=== PATIENT | female | born 1945 | race Caucasian/White ===

== ENCOUNTER 2016-07-29 08:43 | Emergency (ER) | payer MEDICARE, BC ==
[~2016-07-29 08:43] MED LIST: 'PARAFON FORTE500 M1 PO; ASPIRIN CHILDRE81 MG PO; CLARITIN10 MG PO; FLEXERIL10 MG PO; GLUCOPHAGE1000 MG PO; GLYBURIDE5 MG PO; HYDROCODONE BIT1 T11 PO; HYZAAR 50/12.5M1 TAB PO; NAPROSYN500 MG PO; PRILOSEC40 M1 PO; Synthroid,Lev100 MCG PO; TOPROL XL50 M1 PO; TRICOR48 MG PO; VICTOZA 3-PAK6 MG/ML IM; ZETIA10 MG PO
[2016-07-29 09:16] LABS: BASO # 0.1 10*3/uL (0.0-0.1); BASO % 0.6 % (0.0-1.0); EOS # 0.1 10*3/uL (0.0-0.4); EOS % 0.7 % (1.0-4.0); HEMATOCRIT 38.1 % (37.0-47.0); HEMOGLOBIN 10.3 g/dl (12.0-16.0); IG # 0.1 10*3/uL (0.0-0.1); LYMPH # 2.2 10*3/uL (1.3-4.4); LYMPH % 19.4 % (27.0-41.0); MEAN CELL VOLUME 78.7 fl (81.0-99.0); MEAN CORPUSCULAR HGB 21.3 pg (27.0-31.0); MEAN PLATELET VOLUME 9.6 fl (9.6-12.3); MONO # 0.8 10*3/uL (0.1-1.0); MONO % 7.1 % (3.0-9.0); NEUT % 71.7 % (47.0-73.0); PLATELET COUNT AUTOMATED 463 10*3/uL (130-400); RED BLOOD COUNT 4.84 10*6/uL (4.10-5.10); RED CELL DISTRI WIDTH 17.5 % (0-14.5); WHITE BLOOD COUNT 11.2 10*3/uL (4.8-10.8)
[2016-07-29 09:34] LABS: BUN 15 mg/dl (7-24); CARBON DIOXIDE 35 mmol/L (21-32); CHLORIDE 96 mmol/L (98-107); EST GLOM FILT AFRICAN AMERICAN > 60 ml/min; GLUCOSE 114 mg/dL (65-99); MAGNESIUM 1.6 mg/dL (1.5-2.1); POTASSIUM 3.8 mmol/L (3.5-5.1); SODIUM 140 mmol/L (136-145)
[2016-07-29 09:36] LABS: TROPONIN I < 0.015 ng/ml (<0.045)
[2016-07-29 09:57] VITALS: BP 145/65
== END 2016-07-29 09:59 | disposition home or self-care (01) ==
LOC: ED 08:43
PROVIDERS: Emergency Medicine
DX: E16.2 Hypoglycemia, unspecified (principal); Z79.82 Long term (current) use of aspirin; Z79.899 Other long term (current) drug therapy; Z88.1 Allergy status to other antibiotic agents; Z88.8 Allergy status to other drugs, medicaments and biological substances

== ENCOUNTER → 2016-08-13 | Outpatient (CLI) | payer MEDICARE, BC ==
[2016-08-13 16:47] LABS: HEMATOCRIT 34.7 % (37.0-47.0); HEMOGLOBIN 9.5 g/dl (12.0-16.0); MEAN CELL VOLUME 77.5 fl (81.0-99.0); MEAN CORPUSCULAR HGB 21.2 pg (27.0-31.0); MEAN CORPUSCULAR HGB CONC 27.4 g/dl (33.0-37.0); MEAN PLATELET VOLUME 9.5 fl (9.6-12.3); RED BLOOD COUNT 4.48 10*6/uL (4.10-5.10); RED CELL DISTRI WIDTH 17.7 % (0-14.5)
[2016-08-13 17:40] LABS: FERRITIN 5.6 ng/mL (10.0-291.0)
== END | disposition home or self-care (01) ==
LOC: LAB 16:32
PROVIDERS: Internal Medicine
DX: D64.89 Other specified anemias (principal)

== ENCOUNTER → 2016-08-14 | Outpatient (CLI) | payer MEDICARE, BC | END | disposition home or self-care (01) | LOC: LAB 14:42 | DX: D64.89 Other specified anemias (principal) ==

== ENCOUNTER → 2016-08-24 | Day surgery (SDC) | payer MEDICARE, BC ==
[~2016-08-24] VITALS: Ht 167.6 cm; Wt 99.8 kg
--- NOTE | ~2016-08-24 | PROC NOTE ---
[place], [place] PROCEDURE NOTE [id number] UNIT #: [id number] ROOM: DOCTOR: KAY KAMINSKI MD BIRTHDATE: [birth year] DOS: 08/24/2016 PREOPERATIVE DIAGNOSIS: Iron deficiency anemia. POSTOPERATIVE DIAGNOSES: Iron deficiency anemia, diverticulosis. PROCEDURE: Esophagogastroduodenoscopy with colonoscopy. ENDOSCOPIST: Kay Kaminski MD. AUTOMOBILE RENTAL REPRESENTATIVE: PGY1. ANESTHESIA: MAC. INDICATIONS: This is a 71-year-old lady with a history of iron deficiency anemia, who is here for an EGD and a colonoscopy as part of her workup. The procedure and its complications were explained to the patient in detail preoperatively. Complications that were discussed included, but were not limited to, bleeding, colon/gastric perforation, and missed lesions. She agreed to proceed. DESCRIPTION OF PROCEDURE: After identifying the patient, the patient was brought to the operating suite and laid in the left lateral position. After IV sedation was administered, a bite block was placed, and a timeout procedure was called. An EGD was performed by inserting an adult gastroscope into the mouth and advancing sequentially into the pharynx, esophagus, stomach, and the first 2 parts of the duodenum. There were no obvious lesions that could be seen that could have explained the iron deficiency anemia. There were no ulcerations nor gastritis. These findings were confirmed upon retroflexion of the scope in the stomach. Upon withdrawal of the scope, the esophagus was found to be within normal limits. At this point, attention was turned towards colonoscopy. A digital rectal exam was performed, which was within normal limits. An adult colonoscope was now introduced into the anal canal and advanced sequentially into the rectum, sigmoid colon, descending colon, transverse colon, and ascending colon up to the cecum. The prep was found to be optimal. Upon reaching the cecum, the scope was withdrawn. Total withdrawal time was approximately 6 minutes and 45 seconds, again no lesions were identified. No polyps and no obvious signs of bleeding. I did see minimal diverticulosis in the sigmoid colon upon withdrawal. Upon retroflexion of the scope, in the rectum, there was found to be internal hemorrhoids, which were nonbleeding. The scope was withdrawn, and the patient was taken to the recovery room in a stable fashion. Dr. Kay Kaminski, the attending surgeon, was present throughout the operating case. Based on these findings, the patient was recommended to have another colonoscopy in 10 years or before if she has any symptoms. These findings were discussed with the patient's in the postoperative area. I will talk to the patient herself in the office in 2 weeks when she comes to see me as an outpatient. [place], [place] PROCEDURE NOTE NAME: BRENT ORELLANA UNIT #: [id number] ROOM: DOCTOR: KAY KAMINSKI MD BIRTHDATE: [birth year] Kay Kaminski MD CM:PROCNOTE:PROCEDURE NOTE [id number] KAY KAMINSKI MD
[2016-08-24 08:58] VITALS: BP 127/86
[2016-08-24 10:48] VITALS: BP 107/57
[2016-08-24 11:02] VITALS: BP 108/57
[2016-08-24 11:14] VITALS: BP 117/50
== END | disposition home or self-care (01) ==
LOC: SDC 08-23 10:15
DX: D50.9 Iron deficiency anemia, unspecified (principal); K57.30 Diverticulosis of large intestine without perforation or abscess without bleeding; K64.8 Other hemorrhoids; E11.9 Type 2 diabetes mellitus without complications; I10 Essential (primary) hypertension; E07.9 Disorder of thyroid, unspecified; I25.2 Old myocardial infarction; Z82.49 Family history of ischemic heart disease and other diseases of the circulatory system; Z98.890 Other specified postprocedural states; Z87.891 Personal history of nicotine dependence

== ENCOUNTER 2018-04-13 13:00 | Emergency (ER) | payer MEDICARE ==
[~2018-04-13] VITALS: Ht 167.6 cm; Wt 90.7 kg
[2018-04-13 13:00] VITALS: BP 158/75
[2018-04-13] MEDS ORDERED: PREDNISONE50 MG PO (13:40)
== END 2018-04-13 14:05 | disposition home or self-care (01) ==
LOC: ED 13:00
DX: M25.532 Pain in left wrist (principal); M79.89 Other specified soft tissue disorders; R53.1 Weakness; E11.9 Type 2 diabetes mellitus without complications; E07.9 Disorder of thyroid, unspecified; I10 Essential (primary) hypertension; I25.2 Old myocardial infarction; Z88.1 Allergy status to other antibiotic agents; Z88.8 Allergy status to other drugs, medicaments and biological substances; Z79.82 Long term (current) use of aspirin; Z79.899 Other long term (current) drug therapy; Z79.84 Long term (current) use of oral hypoglycemic drugs

== ENCOUNTER → 2019-03-24 | Outpatient (CLI) | payer MEDICARE ==
[~2019-03-24] MED LIST changes: +FENOFIBRATE145 M1 PO; +FEROSUL325 MG PO; +GLYCOTROL CAPS1 EACH PO; +LOSARTAN POTASS25 M1 PO; +MAGNESIUM250 M2 PO; +PRAVACHOL40 MG PO; +PREDNISONE50 MG PO; +TRULICITY1.5 MG/0.5 SC; +VITAMIN D31000 UNI1 PO
--- NOTE | ~2019-03-24 | ST ---
[place], [place] EXERCISE STRESS TEST REPORT NAME: BRENT ORELLANA UNIT #: [id number] ROOM: DOCTOR: AVI INTERIANO MD BIRTHDATE: [birth year] DOS: 03/24/2019 LEXISCAN PORTION OF THE LEXISCAN CARDIOLITE Baseline cardiogram, sinus rhythm with PVCs with poor R-wave progression in the anterior leads, 0.4 mg of Lexiscan, duration of 10 seconds. No new EKG changes. No chest discomfort. Blood pressure and heart rate response was normal. Mild ST depressions are present in the inferior and lateral leads. Nuclear images will be reported separately. AVI INTERIANO MD CM:STRESS:EXERCISE STRESS TEST REPORT [id number] AVI INTERIANO MD
--- NOTE | 2019-03-24 07:45 | NUR ---
INFORMED CONSENT SIGNED FOR LEXISCAN STRESS TEST WITH DR. INTERIANO. RESTING EKG NSR WITH PVC NOTED. HR 73, BP 144/78. PULSE OX 94% AND BREATH SOUND CLEAR BILATERALLY. COMPLETED ONE MINUTE OF LEXISCAN PROTOCOL RECEIVING LEXISCAN 0.4MG OVER 10 SECONDS. RARE PVC'S AND PAC'S NOTED WITH NO ST CHANGES. PT C/O SOB. LAST RECOVERY HR 81, BP 140/70. WAITING NUCLEAR SCANNNING IN STABLE CONDITION.
== END | disposition home or self-care (01) ==
LOC: CARD 00:14
DX: R94.31 Abnormal electrocardiogram [ECG] [EKG] (principal)

== ENCOUNTER 2019-08-27 16:10 | Inpatient (IN) | payer MEDICARE ==
[2019-08-27] VITALS (9 sets, daily range): BP systolic 113–172; BP diastolic 70–90
[~2019-08-27] VITALS: Ht 167.6 cm; Wt 88.7 kg
[2019-08-27 16:52] LABS: BASO # 0.1 10*3/uL (0.0-0.1); BASO % 0.4 % (0.0-1.0); EOS % 0.1 % (1.0-4.0); HEMATOCRIT 40.7 % (37.0-47.0); LYMPH # 1.1 10*3/uL (1.3-4.4); LYMPH % 7.7 % (27.0-41.0); MEAN CELL VOLUME 95.5 fl (81.0-99.0); MEAN CORPUSCULAR HGB 28.9 pg (27.0-31.0); MEAN CORPUSCULAR HGB CONC 30.2 g/dl (33.0-37.0); MEAN PLATELET VOLUME 10.1 fl (9.6-12.3); MONO # 0.3 10*3/uL (0.1-1.0); MONO % 1.8 % (3.0-9.0); NEUT # 13.1 10*3/uL (2.3-7.9); NEUT % 89.3 % (47.0-73.0); PLATELET COUNT AUTOMATED 419 10*3/uL (130-400); RED BLOOD COUNT 4.26 10*6/uL (4.10-5.10); RED CELL DISTRI WIDTH 14.6 % (0-14.5); WHITE BLOOD COUNT 14.7 10*3/uL (4.8-10.8)
[2019-08-27 17:13] LABS: CHLORIDE 100 mmol/L (98-107); POTASSIUM 4.8 mmol/L (3.5-5.1); SODIUM 137 mmol/L (136-145)
[2019-08-27 17:19] LABS: ACT PARTIAL THROMBO TIME 28.7 SECONDS (20.0-32.1); INTERNATIONAL NORM RATIO 1.2 (2.0-3.5)
[2019-08-27 17:41] LABS: ALBUMIN 3.3 gm/dl (3.1-4.5); ALKALINE PHOSPHATASE 82 U/L (45-117); CREATININE 1.18 mg/dL (0.55-1.02); SGOT/AST 52 IU/L (3-35); SGPT/ALT 54 U/L (12-78); TOTAL PROTEIN 7.5 gm/dL (6.4-8.2)
[2019-08-27 17:44] LABS: LIPASE 104 U/L (73-393)
[2019-08-27 18:06] LABS: BUN 27 mg/dl (7-24)
[2019-08-27 18:08] LABS: TROPONIN I < 0.015 ng/ml (<0.045)
--- NOTE | 2019-08-27 20:15 | NUR ---
A 74, admitted to [facility]U, under the services of ANTON Carpenter DO with a diagnosis of Acute heart failure and afib with RVR. Chief complaint is increased shortness of breath x 4-5 days. Patient arrived via stretcher from ER. Monitor applied. Initial assessment completed. Vital signs taken and recorded. ANTON CARPENTER DO notified of admission to the unit. Orders received. See assessment for past medical history, medications and allergies. Patient and/or family oriented to unit. [facility] visitation policy reviewed. Clothing/patient valuable form completed. CARISSA NÚÑEZ
--- NOTE | 2019-08-27 20:30 | NUR ---
SECOND IV STARTED RT WRIST FOR IV ANTIBIOTICS.
[2019-08-27] MEDS ORDERED: VITAMIN B-12500 MC2 PO (20:31)
[2019-08-27] MEDS ORDERED: PROTONIX40 MG PO (20:33)
[2019-08-27] MEDS ORDERED: COLACE100 MG PO (20:34)
[2019-08-27] MEDS ORDERED: MIRALAX17 GM PO (20:35)
[2019-08-27] MEDS ORDERED: AVAPRO150 M1 PO (20:39)
[2019-08-27] MEDS ORDERED: LASIX20 MG PO (20:40)
[2019-08-27] MEDS ORDERED: AMIODARONE HCL100 M1 PO (20:42)
[2019-08-27] MEDS ORDERED: ELIQUIS5 M1 PO (20:43)
--- NOTE | 2019-08-27 21:56 | NUR ---
DR PRINGLE NOTIFIED OF CONSULT. ORDERS RECEIVED.
--- NOTE | 2019-08-27 22:20 | NUR ---
DR GRAMAJO WAS UPDATED ON LACTIC ACIDS TRENDING DOWN, DR PRINGLE ORDERS, CARDIZEM GTT DOWN TO 5MG/HR. CT CHEST RESULTS ALSO RELAYED TO HIM.
[2019-08-27 22:26] LABS: ABG BASE EXCESS 0.8 mmol/L (-2.0-2.0); ARTERIAL BLOOD GAS PH 7.353 (7.35-7.45)
--- NOTE | 2019-08-27 23:50 | NUR ---
MEDICATED WITH TYLENOL PER PRN ORDER FOR C/O GEN PAIN.
[2019-08-28] VITALS (9 sets, daily range): BP systolic 118–159; BP diastolic 52–98
--- NOTE | 2019-08-28 03:50 | NUR ---
MEDICATED WITH TYLENOL PER PRN ORDER FOR C/O GEN PAIN.
[2019-08-28 06:08] LABS: BASO % 0.3 % (0.0-1.0); HEMATOCRIT 36.2 % (37.0-47.0); LYMPH % 9.4 % (27.0-41.0); MEAN CORPUSCULAR HGB 29.1 pg (27.0-31.0); MEAN CORPUSCULAR HGB CONC 30.9 g/dl (33.0-37.0); MEAN PLATELET VOLUME 10.1 fl (9.6-12.3); MONO # 0.2 10*3/uL (0.1-1.0); MONO % 1.9 % (3.0-9.0); NEUT % 87.6 % (47.0-73.0); PLATELET COUNT AUTOMATED 332 10*3/uL (130-400); RED BLOOD COUNT 3.85 10*6/uL (4.10-5.10); RED CELL DISTRI WIDTH 14.8 % (0-14.5); WHITE BLOOD COUNT 10.3 10*3/uL (4.8-10.8)
--- NOTE | 2019-08-28 06:35 | NUR ---
DR MOCK NOTIFIED OF CONSULT. AIDEN NEWMAN FOR AN ECHO THIS MORNING.
[2019-08-28 06:42] LABS: ALBUMIN 3.2 gm/dl (3.1-4.5); BUN 30 mg/dl (7-24); CHLORIDE 100 mmol/L (98-107); CHOLESTEROL 130 mg/dL (<200); CREATININE 0.89 mg/dL (0.55-1.02); POTASSIUM 4.3 mmol/L (3.5-5.1); SGOT/AST 29 IU/L (3-35); SGPT/ALT 50 U/L (12-78); SODIUM 137 mmol/L (136-145); TRIGLYCERIDES 154 mg/dl (<150); VLDL CHOLESTEROL 31 mg/dL (6-40)
[2019-08-28 06:45] LABS: ACT PARTIAL THROMBO TIME 26.8 SECONDS (20.0-32.1); INTERNATIONAL NORM RATIO 1.3 (2.0-3.5)
[2019-08-28 06:48] LABS: ALKALINE PHOSPHATASE 70 U/L (45-117); FREE T4 1.92 ng/dl (0.76-1.46); HDL CHOLESTEROL 50 mg/dl (40-60); LDL CHOLESTEROL 49 mg/dL (9-159); THYROID STIM HORMONE (HS) 0.532 uIU/ml (0.358-4.75)
--- NOTE | 2019-08-28 08:30 | NUR ---
Occupational Therapy evaluation completed on four with full evaluation to follow. Recommend occupational therapy per plan of care and SNF vs home with HH SN, PT, and OT upon discharge pending patient progression. Thank you for this referral. Carey Batres OTR/L
--- NOTE | 2019-08-28 08:50 | NUR ---
Physical Therapy evaluation completed in [facility] with full evaluation to follow. Recommend physical therapy per plan of care SNF vs Home with HH upon discharge pending progress with activity as very limited at this time due to SOB. Per pt she will go home with her . Thank you for this referral. Jennifer Hood PT
--- NOTE | 2019-08-28 09:54 | NUR ---
SPEECH PATHOLOGY Nursing screen completed. There are no reports of dysphagia however this dept. will remain available for consult if needs arise. MOISE SALDAÑA MSCCC-BRIMMER BLOCKER
--- NOTE | 2019-08-28 10:02 | NUR ---
CARDIZEM TITRATED TO 2 MG/HR PER DR ESTES
--- NOTE | 2019-08-28 11:48 | NUR ---
CARDIZEM TURNED OFF PER DR ESTES, HR HAS REMAINED <90
--- NOTE | 2019-08-28 12:26 | NUR ---
[place] Helper in to talk to patient. Patient states lives at HOME with . There are 12 steps in the home. Physician: Annabella LOPEZ [facility]acy: [facility]: NONE Patient's level of ADLs: INDEPENDENT Patient has working utilities: 'YES DME: NONE Follow-up physician's appointment after d/c: WILL BE MADE BY HOSPITALIST NURSE DIRECTOR ON DISCHARGE Does patient want to access PORTAL?: NO Discharge plan PT LIVES AT HOME WITH HER AND IS TOTALLY INDEPENDENT IN HER CARE. DENIES SHE WILL HAVE ANY NEEDS ON DISCHARGE. STATES SHE WILL RETURN HOME WITH WHEN MEDICALLY STABLE. WILL CONTINUE TO FOLLOW. STATES WILL TRANSPORT HER HOME ON DISCHARGE.. RICK COPE
--- NOTE | 2019-08-28 13:11 | NUR ---
CARDIZEM DRIP REMAINS OFF, HR <90 DR PRINGLE IN TO SEE PT, POSSIBLE THORACENTESIS IN AM
--- NOTE | 2019-08-28 13:24 | NUR ---
TALKED WITH PT ABOUT A SKILLED STAY OR HOME HEALTH. PT REFUSES BOTH, STATES SHE IS GOING HOME WITH AND DOES NOT NEED HOME HEALTH.
--- NOTE | 2019-08-28 14:04 | NUR ---
dr sierra here to see pt pt refusing fleming, "I had too much trouble with it before" pt is not incontinent and uses the bsc
[2019-08-28 16:24] LABS: VITAMIN D, 25-HYDROXY 46.8 ng/mL (30-100)
--- NOTE | 2019-08-28 18:43 | NUR ---
UP TO RECLINER
--- NOTE | 2019-08-28 19:26 | NUR ---
CHART CHECK COMPLETE.
--- NOTE | 2019-08-28 23:15 | NUR ---
Pt placed on home Trilogy unit. No comps.
[2019-08-29] VITALS: BP 132/80
--- NOTE | 2019-08-29 00:25 | NUR ---
PT APPEARS COMFORTABLE. ASSISTED FROM CHAIR TO BED AND IN POSITION OF COMFORT AT 2315, WHEN RESP DEPT ASSISTED PT TO HER HOME TRILOGY UNIT WITH PREPROGRAMMED SETTINGS/MODE AND 3L O2 BLED IN.
--- NOTE | 2019-08-29 03:35 | NUR ---
PT LAYING ON HER RIGHT SIDE. EYES CLOSED. HR 70'S, RR 18-22/MIN. CPAP REMAINS IN USE.
[2019-08-29 04:00] VITALS: BP 128/54
[2019-08-29 06:05] LABS: BASO % 0.1 % (0.0-1.0); HEMATOCRIT 33.7 % (37.0-47.0); LYMPH % 8.4 % (27.0-41.0); MEAN CELL VOLUME 93.6 fl (81.0-99.0); MEAN CORPUSCULAR HGB 28.6 pg (27.0-31.0); MEAN CORPUSCULAR HGB CONC 30.6 g/dl (33.0-37.0); MEAN PLATELET VOLUME 10.6 fl (9.6-12.3); MONO # 0.9 10*3/uL (0.1-1.0); MONO % 7.5 % (3.0-9.0); NEUT # 9.9 10*3/uL (2.3-7.9); NEUT % 83.5 % (47.0-73.0); PLATELET COUNT AUTOMATED 300 10*3/uL (130-400); RED CELL DISTRI WIDTH 14.8 % (0-14.5); WHITE BLOOD COUNT 11.8 10*3/uL (4.8-10.8)
--- NOTE | 2019-08-29 06:16 | NUR ---
PT HAS APPEARED TO SLEEP VERY WELL THIS NIGHT. SHE AWAKENED EASILY AND APPROPRIATELY FOR ASSESSMENT AND PHLEBOTOMY AND RETURNED TO SLEEP WITH EASE.
[2019-08-29 06:25] LABS: BUN 38 mg/dl (7-24); CHLORIDE 100 mmol/L (98-107); CREATININE 0.97 mg/dL (0.55-1.02); POTASSIUM 3.8 mmol/L (3.5-5.1); SODIUM 139 mmol/L (136-145)
[2019-08-29 08:00] VITALS: BP 154/88
[2019-08-29 12:00] VITALS: BP 147/70
--- NOTE | 2019-08-29 12:20 | NUR ---
RIGHT SIDE THORACENTESIS DONE BY DR PRINGLE FOR 950 CC CLEAR YELLOW PLEURAL FLUID
[2019-08-29 13:11] LABS: BODY FLUID WBC 399 /uL
--- NOTE | 2019-08-29 13:41 | NUR ---
SHORTLY AFTER THORACENTESIS, PT REQUESTED THAT O2 BE REDUCED BACK TO 2L
[2019-08-29 13:56] LABS: BF LYMPHOCYTES 43 %; BF MACROPHAGES 46 %; BF MESOTHELIALS 2 %; BF NEUTROPHILS 9 %
[2019-08-29 16:00] VITALS: BP 143/71
[2019-08-29 20:00] VITALS: BP 138/77
--- NOTE | 2019-08-29 22:03 | NUR ---
TYLENOL FOR GENERALIZED BODY DISCOMFORTS HAS BEEN EFFECTIVE PT REMAINS SITTING UP IN CHAIR, WATCHING TV AND TALKING ON PHONE
[2019-08-30] VITALS: BP 121/57
--- NOTE | 2019-08-30 00:09 | NUR ---
0000 RESTING IN BED ON LEFT SIDE, WITH EYES CLOSED. APPEARS TO BE SLEEPING. CALL LIGHT IN REACH. NO DISTRESS NOTED. HOME TRILOGY INTACT. PULSE OX 96%. HEP LOCK'S INTACT X'S 2. RESPIRATIONS EASY AND UNLABORED. NO C/O'S PAIN OR DISCOMFORT VOICED.
--- NOTE | 2019-08-30 02:10 | NUR ---
REMAINS SLEEPING WITHOUT DISTRESS.
[2019-08-30 04:00] VITALS: BP 131/61
--- NOTE | 2019-08-30 04:06 | NUR ---
UP TO BSC TO VOID. TOLERATED WELL. BIPAP INTACT. PULSE OX 96%.
--- NOTE | 2019-08-30 06:08 | NUR ---
REMAINS WITHOUT C/O'S. RESTING IN BED WITH EYES CLOSED. MONITOR REMAINS A-FIB. CONDITION GUARDED.
[2019-08-30 06:16] LABS: BASO # 0.1 10*3/uL (0.0-0.1); BASO % 0.4 % (0.0-1.0); EOS # 0.1 10*3/uL (0.0-0.4); EOS % 0.4 % (1.0-4.0); HEMATOCRIT 35.5 % (37.0-47.0); LYMPH # 2.9 10*3/uL (1.3-4.4); LYMPH % 21.6 % (27.0-41.0); MEAN CELL VOLUME 94.9 fl (81.0-99.0); MEAN CORPUSCULAR HGB 28.9 pg (27.0-31.0); MEAN CORPUSCULAR HGB CONC 30.4 g/dl (33.0-37.0); MEAN PLATELET VOLUME 10.5 fl (9.6-12.3); MONO # 1.2 10*3/uL (0.1-1.0); MONO % 8.7 % (3.0-9.0); NEUT # 9.1 10*3/uL (2.3-7.9); NEUT % 68.5 % (47.0-73.0); PLATELET COUNT AUTOMATED 289 10*3/uL (130-400); RED BLOOD COUNT 3.74 10*6/uL (4.10-5.10); RED CELL DISTRI WIDTH 14.8 % (0-14.5); WHITE BLOOD COUNT 13.4 10*3/uL (4.8-10.8)
[2019-08-30 06:36] LABS: CHLORIDE 99 mmol/L (98-107); POTASSIUM 3.5 mmol/L (3.5-5.1); SODIUM 139 mmol/L (136-145)
[2019-08-30 06:46] LABS: ALBUMIN 3.1 gm/dl (3.1-4.5); ALKALINE PHOSPHATASE 57 U/L (45-117); BUN 43 mg/dl (7-24); LDH 131 U/L (84-246); SGOT/AST 20 IU/L (3-35); SGPT/ALT 38 U/L (12-78); TOTAL PROTEIN 6.2 gm/dL (6.4-8.2)
[2019-08-30 08:00] VITALS: BP 136/82
--- NOTE | 2019-08-30 08:00 | NUR ---
PT AAOX3. VSS. RESP EASY. PT UP TO BSC FOR BROWN FORMED STOOL AND THEN TO THE CHAIR FOR BREAKFAST. PT DENIES COMPLAINTS. NO ACUTE DISTRESS NOTED.
--- NOTE | 2019-08-30 08:59 | NUR ---
PT ATE 100% FOR BREAKFAST. PT THEN TO [facility] FOR ANOTHER BM. PT ABLE TO MOVE AROUND IN THE ROOM BY HERSELF. PT DENIES COMPLAINTS OF SOB. POX 95% ON RA. WILL CONTINUE TO MONITOR PT.
--- NOTE | 2019-08-30 10:00 | NUR ---
DR MARRERO IN TO SEE PT. NO NEW ORDERS RECEIVED AT THIS TIME.
--- NOTE | 2019-08-30 11:00 | NUR ---
PT REMAINS SITTING IN THE CHAIR. PT HAS BEEN UP TO BSC TWICE MORE FOR LARGE BROWN FORMED BM'S.
[2019-08-30 12:00] VITALS: BP 102/55
--- NOTE | 2019-08-30 12:13 | NUR ---
PT EATING LUNCH. VSS. NO ACUTE DISTRESS NOTED.
--- NOTE | 2019-08-30 13:09 | NUR ---
DR PRINGLE IN TO SEE PT. NO NEW ORDERS RECEIVED AT THIS TIME.
[2019-08-30 16:00] VITALS: BP 100/73
--- NOTE | 2019-08-30 16:10 | NUR ---
PT TRANSFERED TO [facility]. PT AMBULATED TO HER ROMM WITH A STEADY GAIT. PT REPORT GIVEN TO RECEIVING NURSE.
[2019-08-30 20:00] VITALS: BP 115/58
--- NOTE | 2019-08-30 20:05 | NUR ---
PATIENT ASSESSMENT COMPLETED AT THIS TIME WITHOUT INCIDENT. PATIENT SEATED UP IN RECLINER AND DENIES ANY DISTRESS OR PAIN AT THIS TIME. PATIENT A&O X3, NO DEFICITS NOTED AT THIS TIME. PATIENT ON ROOM AIR AND STATED THAT SHE WILL PUT HERSELF ON HER HOME TRILLOGY AROUND 2300. CALL LIGHT WITHIN REACH WILL CONTINUE TO MONITOR.
--- NOTE | 2019-08-30 21:15 | NUR ---
PRN TYLENOL GIVEN AT THIS TIME AT PATIENT REQUEST FOR GENERALIZED BODY ACHES AND PAINS WHICH PATIENT RATED AT A 2-3 AT THIS TIME PATIENT IS A&O X3 SEATED UP IN A CHAIR WATCHING TV. CALL LIGHT WITHIN REACH. WILL CONTINUE TO MONITOR.
--- NOTE | 2019-08-30 22:10 | NUR ---
PATIENT UP IN RECLINER STATED THAT HER PAIN WAS MUCH BETTER AFTER PRN TYLENOL WAS ADMINISTERED. PATIENT CURRENTLY ON HOME TRILLOGY UNIT. CALL LIGHT WITHIN REACH.
--- NOTE | 2019-08-30 23:41 | NUR ---
24 HOUR CHART CHECK COMPLETE
[2019-08-31] VITALS: BP 115/70
--- NOTE | 2019-08-31 01:20 | NUR ---
PATIENT MEDICATED WITH TYLENOL PO AT THIS TIME FOR GENERALIZED PAIN 09/29. A&O X3, UP IN RECLINER, CALL LIGHT WITHIN REACH, WILL CONTINUE TO MONITOR.
--- NOTE | 2019-08-31 02:10 | NUR ---
PATIENT STATED THAT PAIN WAS NOW A 4/10 AFTER PRN TYLENOL ADMINISTERED. REMAINS UP IN RECLINER AT THIS TIME, CALL LIGHT WITHIN REACH, PATIENT CURRENTLY ON HOME TRILLOGY UNIT.
[2019-08-31 06:50] LABS: BASO # 0.1 10*3/uL (0.0-0.1); BASO % 0.4 % (0.0-1.0); EOS # 0.1 10*3/uL (0.0-0.4); HEMATOCRIT 35.7 % (37.0-47.0); LYMPH # 3.1 10*3/uL (1.3-4.4); LYMPH % 27.3 % (27.0-41.0); MEAN CELL VOLUME 94.7 fl (81.0-99.0); MEAN CORPUSCULAR HGB 28.9 pg (27.0-31.0); MEAN CORPUSCULAR HGB CONC 30.5 g/dl (33.0-37.0); MEAN PLATELET VOLUME 10.9 fl (9.6-12.3); MONO # 1.1 10*3/uL (0.1-1.0); MONO % 9.5 % (3.0-9.0); NEUT # 6.9 10*3/uL (2.3-7.9); NEUT % 61.3 % (47.0-73.0); PLATELET COUNT AUTOMATED 277 10*3/uL (130-400); RED BLOOD COUNT 3.77 10*6/uL (4.10-5.10); WHITE BLOOD COUNT 11.3 10*3/uL (4.8-10.8)
--- NOTE | 2019-08-31 09:10 | NUR ---
PHYSICAL THERAPY Patient seen this am 1;1 for therapy visit and was sitting up in bedside chair upon therapist arrival. Patient identified by name / and reports no new c/o's at this time. OT fundraising assistant was also present for observation only this session as patient recorded resting HR 86 bpm. Patient transfers sit to stand with Supervision and ambulates without AD, 175'x 2, SBA, demonstrating slow, steady philly, increased fatigue, requiring brief seated rest break. Patient then navigated safely up/down 10 steps, single handrail support, demonstrating single step philly. Patient descended stairs backwards / rear facing, stating she feels more comfortable this way secondary to history of R knee weakness. Patient returned to bedside chair recording HR 95 bpm and remained with call light, tray table and telephone. Will continue per POC as tolerated, total treatment time 19 minutes. Garcia Bianchi, KILN STACKER
--- NOTE | 2019-08-31 09:34 | NUR ---
OT NOTE Pt was seen this A.M. 1:1 for 20 minute OT session. Upon arrival pt was sitting upright in the recliner. Pt identified by name and and had no complaints at this time. Pt's resting heart rate was 94 bpm. While seated pt donned B socks MS. Sit to stand then completed from chair level with supervision followed by functional mobility to the bathroom with SBA. There she transferred on/off standard commode with supervision and use of grab bar for UE support. Pt then stood sink side while washing her hands with supervision. Then challenged pt's static standing tolerance needed for increased I in self care tasks and functional transfers, pt was able to tolerate aprox 10 minutes before sitting due to fatigue. Functional mobility was then completed back ot the recliner where she was left sitting upright with call light in hand, tray table in place, and phone in reach. Continue with POC as able. SHERYL Gayle
--- NOTE | 2019-08-31 10:41 | NUR ---
Nutritional Support Services Note: Appetite is good for meals, she is eating 100% of meals. Ht.5'6 Wt.196# IBW 120-140. She receives a cardiac diet with Ensure Vanilla po TID, fluid restricted to 1.5 liter daily. Will follow as needed. No questions at htis time. Zenaida Vicente Rdn Ld
--- NOTE | 2019-08-31 11:29 | NUR ---
PT CONTINUES TO DENY NEEDS AT HOME. CAN BE DISCHARGED TO HOME WHEN MEDICALLY STABLE.
[2019-08-31 12:00] VITALS: BP 124/69
[2019-08-31 12:08] LABS: ACID FAST SPEC PROCESSING Direct Inoculation (.)
--- NOTE | 2019-08-31 14:45 | NUR ---
NURSING SALES DEVELOPMENT CONSULTANT, ALBARO, NOTIFIED OF CARDIOVERSION SCHEDULED FOR TOMORROW AT 7AM AND STATES SHE SPOKE WITH KENA, SURGERY SALES DEVELOPMENT CONSULTANT WHO WOULD MAKE SURE THAT HER TEAM KNEW.
[2019-08-31 16:00] VITALS: BP 106/58
--- NOTE | 2019-08-31 19:28 | NUR ---
24 HR chart check completed.
[2019-08-31 20:00] VITALS: BP 114/56
--- NOTE | 2019-08-31 20:45 | NUR ---
SITTING IN RECLINER WATCHING TV WITH NO DISTRESS NOTED. RESPIRATIONS EASY. LUNGS DIMINISHED WITH PB CRACKLES. PULSE OX 92% RA. +1 PITTING BLE EDEMA, ENCOURAGE TO ELEVATED LEGS. CALL LIGHT WITHIN REACH. NO VOICED COMPLAINTS. NPO STATUS DISCUSSED FOR CARDIOVERSION IN AM.
--- NOTE | 2019-08-31 22:26 | NUR ---
REQUESTED AND RECEIVED TYLENOL PER PRN ORDER FOR COMPLAINTS OF BLE DISCOMFORT, NOT PAIN. BLE ELEVATED ON RECLINER. CALL LIGHT WITHIN REACH. WILL MONITOR
[2019-09-01] VITALS: BP 114/70
--- NOTE | 2019-09-01 | NUR ---
TYLENOL APPEARS EFFECTIVE. SLEEPING IN RECLINER. RESPIRATIONS EASY. VSS. CALL LIGHT WITHIN REACH
--- NOTE | 2019-09-01 02:00 | NUR ---
SLEEPING IN BED WITH TRILOGY IN USE. CALL LIGHT WITHIN REACH.
--- NOTE | 2019-09-01 03:00 | NUR ---
REMAIN IN RECLINER, SLEEPING. NO DISTRESS NOTED. CALL LIGHT WITHIN REACH
--- NOTE | 2019-09-01 06:00 | NUR ---
SLEPT THROUGHOUT NIGHT WITH NO DISTRESS NOTED. RESPIRATIONS EASY. NPO STATUS MAINTAINED. CALL LIGHT WITHIN REACH. NO VOICED COMPLAINTS THIS SHIFT
[2019-09-01 06:13] LABS: BUN 40 mg/dl (7-24); CHLORIDE 98 mmol/L (98-107); CREATININE 0.95 mg/dL (0.55-1.02); POTASSIUM 3.6 mmol/L (3.5-5.1); SODIUM 140 mmol/L (136-145)
--- NOTE | 2019-09-01 06:25 | NUR ---
TRANSPORTED OFF FLOOR FOR CARDIOVERSION
[2019-09-01 07:01] VITALS: BP 135/70
--- NOTE | 2019-09-01 07:25 | NUR ---
DR INTERIANO ON FLOOR. CARDIOVERSION EFFECTIVE. SPOKE PHONE TO PHONE WITH DR ALVES
[2019-09-01 07:28] VITALS: BP 113/59
[2019-09-01 07:42] VITALS: BP 113/68
[2019-09-01 08:05] VITALS: BP 132/68
--- NOTE | 2019-09-01 09:35 | NUR ---
PHYSICAL THERAPY Patient seen this am 1:1 for therapy visit and was sitting up in bedside chair upon therapist arrival. Patient identified by name / and reported returning earlier this morning from a medical procedure. OT diploma medical assistant was also present for observation only this session as patient voices no new c/o's. Patient transfers Supervision and ambulates without AD, ad elvin in hallway, > 300'x 1, Supervision, demonstratrating slow, steady philly and several bouts of increased fatigue, requiring brief standing rest break to continue gait ex. Patient recorded resting HR 68 bpm prior to treatment, with increase to 102 bpm during gait ex. Patient returned to bedside chair and remained with call light, tray table and telephone as breakfast arrived. Patient HR 82 bpm following treatment and will continue per POC as tolerated, total treatment time 17 minutes. Garcia Bianchi, MEDICAL TRANSCRIPTION RADIOLOGY
--- NOTE | 2019-09-01 09:45 | NUR ---
OT NOTE Pt was seen this A.M. 1:1 for 20 minute OT session. Upon arrival pt was sitting upright in the recliner. Pt identified by name and and had no complaints at this time. Pt's resting heart rate was 68 bpm. While sitting pt donned B socks [place]. Sit to stand completed from chair level with supervision followed by functional mobility to the bathroom with supervision. There pt transferred on/off standard commode with supervision. Pt then stood sink side while washing her hands and doffing/donning clean gown with supervision. Throughout pt was educated on energy conservation/work simplification techniques for enhanced safety and increased I, pt verbalized understanding. Challenged pt's static standing tolerance needed for increased I in self care tasks and functional transfers, pt was able to tolerate aprox 10 minutes before sitting due to fatigue. Pt returned to the recliner where she was left sitting upright with call light in hand, tray table in place, and phone in reach. Continue with POC as able. NICOLE Gayle/Cathy
[2019-09-01 12:00] VITALS: BP 112/55
--- NOTE | 2019-09-01 12:05 | NUR ---
PER PT SHE WILL RETURN HOME WITH NO NEW NEEDS ON DISCHARGE. WILL CONTINUE TO FOLLOW.
[2019-09-01] MEDS ORDERED: PACERONE200 MG PO (13:13)
[2019-09-01] MEDS ORDERED: LASIX20 MG PO (13:13)
[2019-09-01] MEDS ORDERED: NEBULIZER PO (13:30)
--- NOTE | 2019-09-01 17:03 | NUR ---
Discharge instructions reviewed with patient/family. Patient receptive and verbalizes understanding. Follow-up care arranged. Written instructions given to patient/family. CLAUDETTE MEYER
--- NOTE | 2019-09-02 07:37 | NUR ---
PHYSICAL THERAPY CO-SIGN I approve of the Physical Therapy notes written above. Jennifer Hood PT
--- NOTE | 2019-09-02 07:47 | NUR ---
OCCUPATIONAL THERAPY CO-SIGN I approve of the Occupational Therapy notes written above. Carey Batres, OTR/L
== END 2019-09-01 17:03 | disposition home or self-care (01) | DRG 871 ==
LOC: ED 16:10 → 4E 18:24 → ICCU 18:24 → EDHOLD 18:24 → ICCU 18:40 → 4E 08-30 15:17
PROVIDERS: Emergency Medicine; Internal Medicine; Internal Medicine Critical Care Medicine; Student in an Organized Health Care Education/Training Program; ADMIT Internal Medicine
PROC: 5A09357 Assistance with Respiratory Ventilation, Less than 24 Consecutive Hours, Continuous Positive Airway Pressure (ICD-10-PCS; principal; 2019-08-28)
PROC: 0W993ZZ Drainage of Right Pleural Cavity, Percutaneous Approach (ICD-10-PCS; 2019-08-29)
PROC: 5A09357 Assistance with Respiratory Ventilation, Less than 24 Consecutive Hours, Continuous Positive Airway Pressure (ICD-10-PCS; 2019-08-30)
PROC: 5A09357 Assistance with Respiratory Ventilation, Less than 24 Consecutive Hours, Continuous Positive Airway Pressure (ICD-10-PCS; 2019-08-31)
PROC: 5A2204Z Restoration of Cardiac Rhythm, Single (ICD-10-PCS; 2019-09-01)
DX: A41.9 Sepsis, unspecified organism (principal); J18.9 Pneumonia, unspecified organism; J96.01 Acute respiratory failure with hypoxia; J96.02 Acute respiratory failure with hypercapnia; I50.21 Acute systolic (congestive) heart failure; J91.8 Pleural effusion in other conditions classified elsewhere; E87.2 Acidosis; I25.810 Atherosclerosis of coronary artery bypass graft(s) without angina pectoris; J44.0 Chronic obstructive pulmonary disease with (acute) lower respiratory infection; I48.21 Permanent atrial fibrillation; I11.0 Hypertensive heart disease with heart failure; D47.3 Essential (hemorrhagic) thrombocythemia; E11.65 Type 2 diabetes mellitus with hyperglycemia; R74.0 Nonspecific elevation of levels of transaminase and lactic acid dehydrogenase [LDH]; R79.89 Other specified abnormal findings of blood chemistry; E11.69 Type 2 diabetes mellitus with other specified complication; E78.5 Hyperlipidemia, unspecified; E53.8 Deficiency of other specified B group vitamins; E03.9 Hypothyroidism, unspecified; K21.9 Gastro-esophageal reflux disease without esophagitis; K59.00 Constipation, unspecified; E83.39 Other disorders of phosphorus metabolism; D64.9 Anemia, unspecified; E66.9 Obesity, unspecified; I25.5 Ischemic cardiomyopathy; T50.2X5A Adverse effect of carbonic-anhydrase inhibitors, benzothiadiazides and other diuretics, initial encounter; Y92.89 Other specified places as the place of occurrence of the external cause; Z95.1 Presence of aortocoronary bypass graft; Z68.32 Body mass index [BMI] 32.0-32.9, adult; Z90.49 Acquired absence of other specified parts of digestive tract; Z80.1 Family history of malignant neoplasm of trachea, bronchus and lung; Z82.49 Family history of ischemic heart disease and other diseases of the circulatory system; Z87.891 Personal history of nicotine dependence; Z88.1 Allergy status to other antibiotic agents; Z88.8 Allergy status to other drugs, medicaments and biological substances; Z79.82 Long term (current) use of aspirin; Z79.899 Other long term (current) drug therapy; Z79.01 Long term (current) use of anticoagulants; Z79.84 Long term (current) use of oral hypoglycemic drugs; T78.40XD Allergy, unspecified, subsequent encounter

== ENCOUNTER → 2019-09-15 | Outpatient (CLI) | payer MEDICARE ==
[~2019-09-15] MED LIST changes: +AMIODARONE HCL100 M1 PO; +AVAPRO150 M1 PO; +COLACE100 MG PO; +ELIQUIS5 M1 PO; +LASIX20 MG PO; +MIRALAX17 GM PO; +NEBULIZER PO; +PACERONE200 MG PO; +PROTONIX40 MG PO; +VITAMIN B-12500 MC2 PO
[2019-09-15 15:55] LABS: ABG BASE EXCESS 0.8 mmol/L (-2.0-2.0); ARTERIAL BLOOD GAS PH 7.373 (7.35-7.45)
== END | disposition home or self-care (01) ==
LOC: LAB 15:32
PROVIDERS: Internal Medicine Critical Care Medicine
DX: J96.10 Chronic respiratory failure, unspecified whether with hypoxia or hypercapnia (principal)

== ENCOUNTER → 2019-12-14 | Outpatient (CLI) | payer MEDICARE | END | disposition home or self-care (01) | LOC: CARD 10:23 | DX: I37.1 Nonrheumatic pulmonary valve insufficiency (principal); I35.8 Other nonrheumatic aortic valve disorders ==

== ENCOUNTER 2020-01-26 15:35 | Emergency (ER) | payer MEDICARE ==
[~2020-01-26] VITALS: Wt 97.5 kg
[2020-01-26 16:05] LABS: BASO % 0.4 % (0.0-1.0); EOS # 0.1 10*3/uL (0.0-0.4); EOS % 1.1 % (1.0-4.0); HEMATOCRIT 34.3 % (37.0-47.0); LYMPH # 1.8 10*3/uL (1.3-4.4); LYMPH % 17.9 % (27.0-41.0); MEAN CELL VOLUME 95.3 fl (81.0-99.0); MEAN CORPUSCULAR HGB 28.9 pg (27.0-31.0); MEAN CORPUSCULAR HGB CONC 30.3 g/dl (33.0-37.0); MEAN PLATELET VOLUME 9.7 fl (9.6-12.3); MONO # 0.9 10*3/uL (0.1-1.0); MONO % 9.1 % (3.0-9.0); PLATELET COUNT AUTOMATED 292 10*3/uL (130-400); RED CELL DISTRI WIDTH 13.7 % (0-14.5); WHITE BLOOD COUNT 9.9 10*3/uL (4.8-10.8)
[2020-01-26 16:17] LABS: ACT PARTIAL THROMBO TIME 30.5 SECONDS (20.0-32.1); INTERNATIONAL NORM RATIO 1.1 (2.0-3.5)
[2020-01-26 16:23] LABS: ALBUMIN 3.2 gm/dl (3.1-4.5); ALKALINE PHOSPHATASE 81 U/L (45-117); BUN 29 mg/dl (7-24); CHLORIDE 106 mmol/L (98-107); CREATININE 1.17 mg/dL (0.55-1.02); POTASSIUM 3.9 mmol/L (3.5-5.1); SGOT/AST 39 IU/L (3-35); SGPT/ALT 95 U/L (12-78); SODIUM 140 mmol/L (136-145); TOTAL PROTEIN 7.1 gm/dL (6.4-8.2)
[2020-01-26 16:33] LABS: TROPONIN I < 0.015 ng/ml (<0.045)
[2020-01-26 16:41] VITALS: BP 138/68
== END 2020-01-26 18:06 | disposition home or self-care (01) ==
LOC: ED 15:35
PROVIDERS: Emergency Medicine
DX: J44.9 Chronic obstructive pulmonary disease, unspecified (principal); Z88.8 Allergy status to other drugs, medicaments and biological substances

== ENCOUNTER 2020-05-15 15:30 | Inpatient (IN) | payer MEDICARE ==
[~2020-05-15] VITALS: Ht 167.6 cm; Wt 97.9 kg
[2020-05-15] VITALS (9 sets, daily range): BP systolic 100–149; BP diastolic 41–86
[2020-05-15 16:18] LABS: BASO % 0.1 % (0.0-1.0); HEMATOCRIT 43.5 % (37.0-47.0); LYMPH # 1.3 10*3/uL (1.3-4.4); LYMPH % 14.6 % (27.0-41.0); MEAN CELL VOLUME 99.8 fl (81.0-99.0); MEAN CORPUSCULAR HGB 28.7 pg (27.0-31.0); MEAN CORPUSCULAR HGB CONC 28.7 g/dl (33.0-37.0); MEAN PLATELET VOLUME 10.6 fl (9.6-12.3); MONO # 0.6 10*3/uL (0.1-1.0); NEUT # 7.2 10*3/uL (2.3-7.9); NEUT % 77.8 % (47.0-73.0); PLATELET COUNT AUTOMATED 199 10*3/uL (130-400); RED BLOOD COUNT 4.36 10*6/uL (4.10-5.10); RED CELL DISTRI WIDTH 14.4 % (0-14.5); WHITE BLOOD COUNT 9.2 10*3/uL (4.8-10.8)
[2020-05-15 16:30] LABS: ACT PARTIAL THROMBO TIME 28.1 SECONDS (20.0-32.1); INTERNATIONAL NORM RATIO 1.1 (2.0-3.5)
[2020-05-15 16:40] LABS: ABG BASE EXCESS -6.6 mmol/L (-2.0-2.0); ARTERIAL BLOOD GAS PH 7.366 (7.35-7.45)
[2020-05-15 16:40] LABS: ALBUMIN 3.4 gm/dl (3.1-4.5); ALKALINE PHOSPHATASE 65 U/L (45-117); BUN 29 mg/dl (7-24); CHLORIDE 98 mmol/L (98-107); POTASSIUM 4.8 mmol/L (3.5-5.1); SGOT/AST 15 IU/L (3-35); SGPT/ALT 27 U/L (12-78); SODIUM 134 mmol/L (136-145); TOTAL PROTEIN 7.3 gm/dL (6.4-8.2)
[2020-05-15 16:46] LABS: TROPONIN I < 0.015 ng/ml (<0.045)
[2020-05-15 17:35] LABS: CPK 32 U/L (26-192); LDH 208 U/L (84-246)
[2020-05-15 23:33] LABS: ABG BASE EXCESS -9.6 mmol/L (-2.0-2.0); ARTERIAL BLOOD GAS PH 7.261 (7.35-7.45)
[2020-05-16] VITALS (54 sets, daily range): BP systolic 12–142; BP diastolic 3–70
[2020-05-16] MEDS ORDERED: FUROSEMIDE40 MG PO (00:57)
[2020-05-16] MEDS ORDERED: TRELEGY ELLIPT1 EACH INH (01:00)
[2020-05-16 02:05] LABS: BILIRUBIN Negative (Negative); BLOOD Negative (Negative); CLARITY Cloudy (Clear); COLOR Yellow (Yellow); GLUCOSE Negative (Negative); KETONE Negative (Negative); LEUKO ESTERASE Negative (Negative); NITRITE Negative (Negative); SPECIFIC GRAVITY 1.015 (1.001-1.030); UROBILINOGEN 0.2 E.U./dl (0.0-1.0)
[2020-05-16 06:25] LABS: ALBUMIN 3.2 gm/dl (3.1-4.5); CREATININE 2.06 mg/dL (0.55-1.02); TOTAL PROTEIN 6.8 gm/dL (6.4-8.2)
[2020-05-16 06:35] LABS: HEMATOCRIT 39.4 % (37.0-47.0); LYMPH # 0.6 10*3/uL (1.3-4.4); LYMPH % 8.6 % (27.0-41.0); MEAN CORPUSCULAR HGB CONC 30.7 g/dl (33.0-37.0); MEAN PLATELET VOLUME 11.9 fl (9.6-12.3); MONO # 0.4 10*3/uL (0.1-1.0); MONO % 6.1 % (3.0-9.0); NEUT # 5.4 10*3/uL (2.3-7.9); NEUT % 83.6 % (47.0-73.0); NUCLEATED RED BLOOD CELL 0.3 % (0.0-0.0); RED BLOOD COUNT 4.17 10*6/uL (4.10-5.10); RED CELL DISTRI WIDTH 14.5 % (0-14.5); WHITE BLOOD COUNT 6.4 10*3/uL (4.8-10.8)
[2020-05-16 06:39] LABS: FREE T4 2.02 ng/dl (0.76-1.46); MEAN CELL VOLUME 94.5 fl (81.0-99.0); PLATELET COUNT AUTOMATED 141 10*3/uL (130-400); THYROID STIM HORMONE (HS) 1.76 uIU/ml (0.358-4.75)
[2020-05-16 07:10] LABS: VITAMIN D, 25-HYDROXY 43.3 ng/mL (30-100)
[2020-05-16 08:08] LABS: ABG BASE EXCESS -1.4 mmol/L (-2.0-2.0); ARTERIAL BLOOD GAS PH 7.387 (7.35-7.45)
[2020-05-16 12:54] LABS: ABG BASE EXCESS -5.3 mmol/L (-2.0-2.0); ARTERIAL BLOOD GAS PH 7.228 (7.35-7.45)
== END 2020-05-16 17:45 | disposition expired | DRG 871 ==
LOC: ED 15:30 → EDHOLD 17:06 → ICCU 05-16 00:07
PROVIDERS: Emergency Medicine; Internal Medicine; Internal Medicine Critical Care Medicine; Social Worker Clinical; ADMIT Emergency Medicine; ATTEND Emergency Medicine
PROC: 03H833Z Insertion of Infusion Device into Left Brachial Artery, Percutaneous Approach (ICD-10-PCS; 2020-05-15)
PROC: B34JZZZ Ultrasonography of Left Upper Extremity Arteries (ICD-10-PCS; 2020-05-15)
PROC: 02HV33Z Insertion of Infusion Device into Superior Vena Cava, Percutaneous Approach (ICD-10-PCS; principal; 2020-05-16)
PROC: B548ZZA Ultrasonography of Superior Vena Cava, Guidance (ICD-10-PCS; 2020-05-16)
PROC: 0BH17EZ Insertion of Endotracheal Airway into Trachea, Via Natural or Artificial Opening (ICD-10-PCS; 2020-05-16)
PROC: 5A1935Z Respiratory Ventilation, Less than 24 Consecutive Hours (ICD-10-PCS; 2020-05-16)
DX: A41.9 Sepsis, unspecified organism (principal); R65.21 Severe sepsis with septic shock; U07.1 COVID-19; J96.01 Acute respiratory failure with hypoxia; J44.9 Chronic obstructive pulmonary disease, unspecified; I25.10 Atherosclerotic heart disease of native coronary artery without angina pectoris; K21.9 Gastro-esophageal reflux disease without esophagitis; E78.5 Hyperlipidemia, unspecified; Z66 Do not resuscitate; I10 Essential (primary) hypertension; Z51.5 Encounter for palliative care; Z88.2 Allergy status to sulfonamides; Z20.822 Contact with and (suspected) exposure to COVID-19; E03.9 Hypothyroidism, unspecified; E66.9 Obesity, unspecified; K72.90 Hepatic failure, unspecified without coma; Z90.49 Acquired absence of other specified parts of digestive tract; Z87.891 Personal history of nicotine dependence; Z80.1 Family history of malignant neoplasm of trachea, bronchus and lung; Z82.49 Family history of ischemic heart disease and other diseases of the circulatory system; Z95.5 Presence of coronary angioplasty implant and graft; Z88.8 Allergy status to other drugs, medicaments and biological substances; Z88.1 Allergy status to other antibiotic agents; Z95.1 Presence of aortocoronary bypass graft; Z68.34 Body mass index [BMI] 34.0-34.9, adult